=== PATIENT | male | born 1945 | race American Indian/Alaskan Native ===

== ENCOUNTER 2016-11-30 21:19 | Emergency (ER) | payer MEDICARE ==
[2016-11-30 21:36] VITALS: BMI 25.0
[2016-11-30 21:41] VITALS: RESP 18; TEMP 98.1
--- NOTE | 2016-11-30 22:11 | ED PDOC ---
Arrival/HPI - General Chief Complaint: High Blood Pressure Time Seen by Provider: 11/30/16 21:50 Historian: Patient - History of Present Illness Narrative History of Present Illness (Text): 11/30/16 22:04 Darinel Mejia is a 71 year old male, with a history of hypertension and a-fib , presents to the emergency department for evaluation of elevated blood pressure. Patient did not measure his pressure at home, but states he felt like his pressure was elevated. Denies any palpitations. States that he ate a bag of potato chips which was high is salt. Patient is also under emotional distress as his brother recently . Currently states he is asymptomatic. Denies any headache, dizziness, chest pain, difficulty breathing, nausea, vomiting, diarrhea, urinary symptoms or any other complaints at this time. Time/Duration: 4-6 hours Symptom Onset: Gradual Severity Level: Mild Context: Home Past Medical History - Provider Review Nursing Documentation Reviewed: Yes - Cardiac Hx Atrial Fibrillation: Yes Hx Hypertension: Yes - Neurological Hx Paralysis: No - HEENT Hx HEENT Disorder: Yes (uses glasses) - Hematological/Oncological Hx Blood Transfusions: No Hx Blood Transfusion Reaction: No - Musculoskeletal/Rheumatological Hx Musculoskeletal Disorders: No - Psychiatric Hx Emotional Abuse: No Hx Physical Abuse: No Hx Substance Use: No - Surgical History Hx Cholecystectomy: Yes - Anesthesia Hx Anesthesia: Yes Hx Anesthesia Reactions: No Hx Malignant Hyperthermia: No - Suicidal Assessment Feels Threatened In Home Enviroment: No Family/Social History - Physician Review Nursing Documentation Reviewed: Yes Family/Social History: No Known Family HX Smoking Status: Current Some Days Smoker Hx Alcohol Use: Yes (NOT CURRENTLY BUT IN PAST) Hx Substance Use: No Allergies/Home Meds Allergies/Adverse Reactions: Allergies No Known Allergies Allergy (Verified 06/14/13 12:20) Home Medications: Home Meds Medication Instructions Recorded Confirmed Abacavir Sulfate/Lamivudine 1 tab PO DAILY 10/10/16 11/30/16 [Abacavir-Lamivudine 600-300 mg] Cholecalciferol [Vitamin D 1000 IU] 2,000 unit PO DAILY 10/10/16 11/30/16 Cyanocobalamin [Vitamin B12 1000 1 tab PO DAILY 10/10/16 11/30/16 mcg Tab] Darunavir [Prezista] 800 mg PO DAILY 10/10/16 11/30/16 Ritonavir [Norvir] 100 mg PO DAILY 10/10/16 11/30/16 Valsartan [Diovan] 320 mg PO DAILY 10/10/16 11/30/16 Sulfamethoxazole/Trimethoprim 1 tab PO MWF 11/30/16 11/30/16 [Bactrim DS 800 mg-160 mg] Review of Systems - Physician Review All systems were reviewed & negative as marked: Yes - Review of Systems Constitutional: Normal. absent: Fatigue, Fevers Eyes: Normal Respiratory: Normal. absent: SOB, Cough, Sputum Cardiovascular: Normal. absent: Chest Pain, Palpitations Gastrointestinal: Normal. absent: Abdominal Pain, Diarrhea, Nausea, Vomiting Neurological: Normal. absent: Headache, Dizziness Psychiatric: Normal Physical Exam Vital Signs Reviewed: Yes Vital Signs Temp Pulse Resp BP Pulse Ox 11/30/16 23:36 55 L 18 157/82 H 100 11/30/16 21:36 98.1 F 65 18 170/92 H 99 Temperature: Afebrile Blood Pressure: Hypertensive Pulse: Regular Respiratory Rate: Normal Appearance: Positive for: Well-Appearing, Non-Toxic, Comfortable Pain Distress: None Mental Status: Positive for: Alert and Oriented X 3 - Systems Exam Head: Present: Atraumatic, Normocephalic Pupils: Present: PERRL Conjunctiva: Present: Normal Respiratory/Chest: Present: Clear to Auscultation, Good Air Exchange. No: Respiratory Distress, Accessory Muscle Use Cardiovascular: Present: Regular Rate and Rhythm, Normal S1, S2. No: Murmurs Abdomen: Present: Normal Bowel Sounds. No: Tenderness, Distention, Peritoneal Signs Upper Extremity: Present: Normal Inspection. No: Cyanosis, Edema Lower Extremity: Present: Normal Inspection. No: Edema Neurological: Present: GCS=15, CN II-XII Intact, Speech Normal Skin: Present: Warm, Dry, Normal Color. No: Rashes Psychiatric: Present: Alert, Oriented x 3, Normal Insight, Normal Concentration Medical Decision Making ED Course and Treatment: 11/30/16 22:14 Impression: A 71 year old male who presents to the ed for evaluation of elevated blood pressure. Patient is currently asymptomatic. Progress Notes: 12/01/16 00:20 Blood pressure to 157/82. Patient is stable for discharge. Advised to present to emergency department for worsening symptoms and follow up with PMD within few days. - Scribe Statement The provider has reviewed the documentation as recorded by the Mony Hankins Provider Attestation: All medical record entries made by the Mony were at my direction and personally dictated by me. I have reviewed the chart and agree that the record accurately reflects my personal performance of the history, physical exam, medical decision making, and the department course for this patient. I have also personally directed, reviewed, and agree with the discharge instructions and disposition. Disposition/Present on Arrival - Present on Arrival Any Indicators Present on Arrival: No History of DVT/PE: No History of Uncontrolled Diabetes: No Urinary Catheter: No History of Decub. Ulcer: No History Surgical Site Infection Following: None - Disposition Have Diagnosis and Disposition been Completed?: Yes Diagnosis: Hypertension Disposition: HOME/ ROUTINE Disposition Time: 23:20 Condition: GOOD Discharge Instructions (ExitCare): Hypertension (ED)
[2016-11-30 23:38] VITALS: BP 157/82; PULSE 55; O2SAT 100
== END 2016-12-01 00:20 | disposition home or self-care (01) ==
LOC: ED 21:19
DX: I10 Essential (primary) hypertension (principal); Z72.0 Tobacco use

== ENCOUNTER 2018-07-27 06:04 | Day surgery (SDC) | payer MEDICARE ==
[2018-07-25 13:39] VITALS: BMI 26.4
[2018-07-27] MEDS ORDERED: Phenylephrine 10 mg/ml Inj ONE (07:04)
[2018-07-27] MEDS ORDERED: Lidocaine 2% Inj (20ml) ONE (07:04)
[2018-07-27] MEDS ORDERED: Iodixanol 320 MG/ML 200 ML BOTTLE IV ONE (07:05)
[2018-07-27] MEDS ORDERED: Iohexol 350mgl/ml 50 ML ONE (07:05)
[2018-07-27] MEDS ORDERED: Nitroglycerin 50mg in D5W 50 MG/250 ML BOTTLE IV ONE (07:05)
[2018-07-27] MEDS ORDERED: Iodixanol 320 MG/ML 100 ML BOTTLE IV ONE (07:05)
[2018-07-27 07:18] LABS: BASO # 0.04 K/mm3 (0.0-2.0); BASO % 0.9 % (0.0-3.0); EOS # 0.4 (0.0-0.7); EOS % 8.6 % (1.5-5.0); GRAN # 1.71 (1.4-6.5); HEMOGLOBIN 12.2 g/dL (14.0-18.0); LYMPH # 1.8 (1.2-3.4); LYMPH % 42.3 % (22.0-35.0); MEAN CELL VOLUME 62.4 fl (80.0-105.0); MEAN CORPUSCULAR HGB CONC 30.5 g/dl (31.0-37.0); MEAN PLATELET VOLUME 9.8 fl (7.0-11.0); MONO # 0.4 (0.1-0.6); MONO % 8.2 % (1.0-6.0); RBC 6.41 10^6/uL (3.5-6.1); RED CELL DISTRIBUTION WIDTH 16.6 % (11.5-14.5); WHITE BLOOD COUNT 4.3 10^3/uL (4.5-11.0)
[2018-07-27 07:25] LABS: INR 1.03; PARTIAL THROMBOPLASTIN TIME 28.8 Seconds (25.1-36.5); PROTHROMBIN TIME 11.9 SECONDS (9.4-12.5)
[2018-07-27 07:34] LABS: CALCIUM 9.1 mg/dL (8.4-10.5)
[2018-07-27] MEDS ORDERED: Midazolam 2 MG/2 ML VIAL ONE ×2 (08:07→08:13)
[2018-07-27] MEDS ORDERED: Sodium Chloride 0.9% 1,000 ML IV SCH (08:45)
[2018-07-27 09:07] VITALS: RESP 18; TEMP 97.7
[2018-07-27 09:45] VITALS: O2SAT 96
[2018-07-27 11:49] VITALS: BP 129/71; PULSE 52
--- NOTE | 2018-07-27 12:55 | CARDCATH ---
PROCEDURE DATE: 07/27/2018 HISTORY The patient is a 72-year-old male with a strong family history for coronary artery disease, who suffers from hypertension as well as atrial fibrillation, which was treated successfully with Betapace A stress test was abnormal. Because of this, cardiac catheterization was recommended. PROCEDURE: Left heart catheterization with coronary arteriography and left ventriculogram and supra-aortic valvular injection. The right femoral artery was cannulated with a 6-Bur[place] sheath. There were no complications. I performed moderate sedation which included the presence of an independent trained observer that assisted in monitoring the patient's level of consciousness and physiologic status. After administration of Versed and fentanyl, my intra-service time was 15 minutes. The findings on catheterization revealed a left dominant circulation. The RCA which was a nondominant vessel revealed a 50% stenosis in its proximal portion. The left main artery was unremarkable. The LAD and diagonal vessels revealed intimal irregularities without critical lesions. The circumflex artery and obtuse marginal branches revealed diffuse atherosclerosis without critical lesions. Supra-aortic valvular injection revealed no aortic insufficiency. Left ventriculogram reveals normal LV function with an EF of 60-65%. Angio-Seal was used to close the femoral artery site. The patient tolerated the procedure well. IMPRESSION: In summary, the procedure revealed; 1 . 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 2. Normal LV function. 3. No aortic insufficiency. 4. Hypertension. 5. Paroxysmal atrial fibrillation, treated successfully with sotalol. 6. History of human immunodeficiency virus. PLAN: Given these findings, the patient's treatment needs to be a cardiac risk reduction program with daily aspirin and strict cholesterol control. Camden Colunga MD
== END 2018-07-27 16:00 | disposition home or self-care (01) ==
LOC: CATH 06:04
PROVIDERS: ATTEND Internal Medicine Cardiovascular Disease
DX: I25.10 Atherosclerotic heart disease of native coronary artery without angina pectoris (principal); I48.0 Paroxysmal atrial fibrillation; I10 Essential (primary) hypertension; Z21 Asymptomatic human immunodeficiency virus [HIV] infection status
CPT/HCPCS: 36415; 80048; 85025; 85610; 85730; 86850; 86900; 93458; 93567; 99152; 99153; C1760; C1769; C2629; J1644; J2250; J3010; J7030; Q9966

== ENCOUNTER 2018-09-05 13:59 | Outpatient (CLI) | payer MEDICARE | END 2018-09-05 14:00 | disposition home or self-care (01) | LOC: RAD 13:59 ==